=== PATIENT | male | born 1985 | race American Indian/Alaskan Native ===

== ENCOUNTER 2021-04-04 12:14 | Emergency (ER) | payer OTHER ==
--- NOTE | 2021-04-04 12:53 | XRay Report ---
RIGHT ANKLE 3 VIEWS INDICATION / CLINICAL INFORMATION: Right ankle pain and swelling. COMPARISON: None available. FINDINGS: BONES / JOINT(S): There is an acute, oblique fracture of the distal fibular metadiaphysis with mild l ateral and posterior displacement of the distal fracture fragment. There is a small acute chip/avulsi on fracture involving the medial malleolus/posterior malleolus. There is lateral subluxation of the t alus in relationship to the tibia. There are small dorsal and plantar calcaneal spurs. There are mild degenerative changes involving the dorsum of the midfoot/hindfoot. SOFT TISSUES: There is moderate generalized soft tissue swelling. ADDITIONAL FINDINGS: None. IMPRESSION: Acute fracture/dislocation involving the right ankle. Signer Name: Han Pires MD Signed: 04/04/2021 12:49 PM Workstation Name: [id number]
[2021-04-04] MEDS ORDERED: IBUPROFEN 800 MG TAB PO STA (13:05)
[2021-04-04] MEDS ORDERED: oxyCODONE /ACETAMINOPHEN 5-325MG TAB PO ONE (13:05)
--- NOTE | 2021-04-04 13:06 | Emergency Department Report ---
ED General Adult HPI - General Chief complaint: Extremity Injury, Lower Stated complaint: FALL,TWISTED RT ANKLE Time Seen by Provider: 04/04/21 12:50 Source: patient Mode of arrival: Wheelchair Limitations: No Limitations - History of Present Illness Initial comments: 35-year-old -[place] male patient presents with complaints of right ankle pain and swelling after a twist and fall injury yesterday. He rates his current pain as a 10/10 in severity. He denies any numbness or color changes. Patient states he is having difficulty walking on the ankle due to the pain and difficulty with movement secondary to pain and swelling. He has not tried any medication for his symptoms. - Related Data Previous Rx's Medication Instructions Recorded Last Taken Type Acetaminophen/Codeine [Tylenol 1 tab PO Q8H PRN #12 tab 04/04/21 Unknown Rx /Codeine # 3 tab] Naproxen [Naprosyn] 500 mg PO BID PRN #20 tablet 04/04/21 Unknown Rx Allergies Allergy/AdvReac Type Severity Reaction Status Date / Time No Known Allergies Allergy Unverified 04/04/21 12:17 ED Review of Systems ROS: Stated complaint: FALL,TWISTED RT ANKLE Other details as noted in HPI Constitutional: denies: fever, malaise Musculoskeletal: joint swelling, arthralgia Skin: denies: change in color ED Past Medical Hx - Past Medical History Previous Medical History?: No - Surgical History Additional Surgical History: KNEE SURGERY - Medications Home Medications: Home Medications Medication Instructions Recorded Confirmed Last Taken Type Acetaminophen/Codeine [Tylenol 1 tab PO Q8H PRN #12 tab 04/04/21 Unknown Rx /Codeine # 3 tab] Naproxen [Naprosyn] 500 mg PO BID PRN #20 tablet 04/04/21 Unknown Rx ED Physical Exam - General Limitations: No Limitations General appearance: alert, in no apparent distress, obese - Head Head exam: Present: atraumatic, normocephalic - Eye Eye exam: Present: normal appearance - Respiratory Respiratory exam: Absent: respiratory distress - Cardiovascular Cardiovascular Exam: Present: regular rate - Expanded Lower Extremity Exam Right Lower Leg exam: Present: full ROM, tenderness, swelling (Lower) Ankle exam: Present: tenderness, swelling, ecchymosis (Mild lateral). Absent: full ROM Foot/Toe exam: Present: swelling (Mild) Neuro vascular tendon exam: Absent: no vascular compromise, sensory deficit Gait: Positive: not tested/not observed - Neurological Exam Neurological exam: Present: alert, oriented X3 - Psychiatric Psychiatric exam: Present: normal affect, normal mood ED Course Vital Signs 04/04/21 12:20 Temperature 98.5 F Pulse Rate 109 H Respiratory 18 Rate Blood Pressure 148/93 O2 Sat by Pulse 96 Oximetry - Procedure Description Procedures done: [place] splint placed on right ankle and lower leg. Patient tolerated procedure well without any immediate complications. He has normal perfusion of the toes and denies any pain from the splint application. ED Medical Decision Making - Radiology Data Radiology results: report reviewed RIGHT ANKLE 3 VIEWS INDICATION / CLINICAL INFORMATION: Right ankle pain and swelling. COMPARISON: None available. FINDINGS: BONES / JOINT(S): There is an acute, oblique fracture of the distal fibular metadiaphysis with mild lateral and posterior displacement of the distal fracture fragment. There is a small acute chip/avulsion fracture involving the medial malleolus/posterior malleolus. There is lateral subluxation of the talus in relationship to the tibia. There are small dorsal and plantar calcaneal spurs. There are mild degenerative changes involving the dorsum of the midfoot/hindfoot. SOFT TISSUES: There is moderate generalized soft tissue swelling. ADDITIONAL FINDINGS: None. IMPRESSION: Acute fracture/dislocation involving the right ankle. - Medical Decision Making 35-year-old -[place] male patient presents with complaints of right ankle pain and swelling after a twist and fall injury yesterday. He rates his current pain as a 10/10 in severity. He denies any numbness or color changes. Patient states he is having difficulty walking on the ankle due to the pain and difficulty with movement secondary to pain and swelling. He has not tried any medication for his symptoms. X-ray shows mildly displaced distal fibular fracture and avulsion fracture of the lateral malleolus. Patient given pain medication and placed in [place] splint. He tolerated the procedure well without any immediate complications. Discussed importance of nonweightbearing and follow-up with orthopedics within 2 to 3 days. Also discussed in detail signs and symptoms including signs and symptoms of compression syndrome that should prompt immediate return to the ED with patient who verbalizes understanding. He is otherwise well-appearing and stable for discharge home. Critical care attestation.: If time is entered above; I have spent that time in minutes in the direct care of this critically ill patient, excluding procedure time. ED Disposition Clinical Impression: Fracture of distal end of right fibula Disposition: HOME / SELF CARE / HOMELESS Is pt being admited?: No Condition: Stable Instructions: Tibial and Fibular Fractures, Cast or Splint Care, Adult Prescriptions: Naproxen [Naprosyn] 500 mg PO BID PRN #20 tablet PRN Reason: pain Acetaminophen/Codeine [Tylenol /Codeine # 3 tab] 1 tab PO Q8H PRN #12 tab PRN Reason: Pain , Severe (7-10) Referrals: [facility] [Provider Group] - 3-5 Days Forms: Work/School Release Form(ED)
[2021-04-04 14:48] VITALS: BP 143/83
== END 2021-04-04 14:47 | disposition home or self-care (01) ==
LOC: ED 12:14
DX: S82.831A Other fracture of upper and lower end of right fibula, initial encounter for closed fracture (principal); Z79.899 Other long term (current) drug therapy; X50.1XXA Overexertion from prolonged static or awkward postures, initial encounter; Y93.89 Activity, other specified; Y92.89 Other specified places as the place of occurrence of the external cause; Y99.8 Other external cause status
CPT/HCPCS: 99283